=== PATIENT | male | born 1960 | race Caucasian/White ===

== ENCOUNTER 2023-02-01 15:30 | Outpatient (RCR) | payer BC, SELFPAY | END 2023-06-01 23:59 | disposition home or self-care (01) | PROVIDERS: Visit Provider Family Medicine | DX: M54.2 Cervicalgia (principal); Z74.09 Other reduced mobility; M25.60 Stiffness of unspecified joint, not elsewhere classified; R53.1 Weakness; R42 Dizziness and giddiness; R29.3 Abnormal posture; Z51.89 Encounter for other specified aftercare | CPT/HCPCS: 97012; 97110; 97140; 97162 ==